=== PATIENT | male | born 1985 | race Caucasian/White ===

== ENCOUNTER 2018-09-05 00:18 | Emergency (ER) | payer OTHER ==
[~2018-09-05] VITALS: Ht 200.7 cm; Wt 209.1 kg
[~2018-09-05 00:18] MED LIST: MELA3TAB2 PO
[2018-09-05 00:33] VITALS: BP 142/89
--- NOTE | 2018-09-05 00:40 | ED.ADGEN ---
Past History Past Medical History: Anxiety, Other Past Surgical History: No Surgical History Smoking: Quit Less Than 1 Year Alcohol Use: None Drug Use: Marijuana Adult General Chief Complaint Chief Complaint penis problem HPI HPI Patient is a [age] year old [sex] who presents with [] Review of Systems Review of Systems Allergies Allergies Allergies Coded Allergies Type Severity Reaction Last Updated Verified No Known Drug Allergies 09/05/18 No EKG EKG [] Radiology/Procedures Radiology/Procedures [] Course & Med Decision Making Course & Med Decision Making Patient refused to be seen and evaluated refused blood work perfused physical exam she was the x-rays stated I want to go to different hospital take care of the blood pressure cuff and pulse ox on left with his mom Final Impression Final Impression [] Problems: (1) Penis pain Dragon Disclaimer Dragon Disclaimer This electronic medical record was generated, in whole or in part, using a voice recognition dictation system. SEBASTIAN KIM MD Sep 05, 2018 00:40
== END 2018-09-05 00:38 | disposition left against medical advice (07) ==
LOC: ER 00:18
DX: N48.89 Other specified disorders of penis (principal); R06.02 Shortness of breath; F41.9 Anxiety disorder, unspecified; Z87.891 Personal history of nicotine dependence; Z53.21 Procedure and treatment not carried out due to patient leaving prior to being seen by health care provider

== ENCOUNTER 2021-02-15 13:18 | Emergency (ER) | payer OTHER ==
[~2021-02-15] VITALS: Ht 198.1 cm; Wt 157.8 kg
[~2021-02-15 13:18] MED LIST changes: -MELA3TAB2 PO; +MELA3TAB4 PO
--- NOTE | 2021-02-15 13:49 | PHYS DOC ---
Past History Past Medical History: Anxiety, Bipolar, Schizophrenia, Other Past Surgical History: No Surgical History Smoking: Quit Less Than 1 Year Alcohol Use: Rarely Drug Use: Marijuana General Adult EDM: Chief Complaint: PSYCH EVALUATION HPI: HPI: 35-year-old male presents with his mother for psychiatric evaluation. The patient is deaf. He communicates through sign language and he can speak. Most of this history comes from the patient's mother. She reports that he has been acting erratic lately. He has been knocking on neighbors doors and talking to people that are not there. He is also been wandering around outside. Patient has a history of schizophrenia, but has not been on medications in several years. Mom was concerned someone will call the police on the patient and he will not be able to communicate with the officers. The patient tells me through the shield installer that he feels fine. He denies hallucinations. He denies s uicidal or homicidal ideation but then states "do not ask me questions like that". Review of Systems: Review of Systems: Constitutional: Denies fever or chills Eyes: Denies change in visual acuity HENT: Deaf. Denies nasal congestion or sore throat Respiratory: Denies cough or shortness of breath Cardiovascular: Denies chest pain or edema GI: Denies abdominal pain, nausea, vomiting, bloody stools or diarrhea : Denies dysuria Musculoskeletal: Denies back pain or joint pain Integument: Denies rash Neurologic: Denies headache, focal weakness or sensory changes Endocrine: Denies polyuria or polydipsia Lymphatic: Denies swollen glands Psychiatric: Hallucinations Allergies: Allergies: Allergies Coded Allergies Type Severity Reaction Last Updated Verified No Known Drug Allergies 09/05/18 No Physical Exam: PE: Constitutional: Well developed, well nourished, obese, no acute distress, non- toxic appearance. [] HENT: Normocephalic, atraumatic, bilateral external ears normal, deaf, oropharynx moist, no oral exudates, nose normal. [] Eyes: PERRLA, EOMI, conjunctiva normal, no discharge. [] Neck: Normal range of motion, no tenderness, supple, no stridor. [] Cardiovascular: Heart rate regular rhythm, no murmur [] Lungs & Thorax: Bilateral breath sounds clear to auscultation [] Abdomen: Bowel sounds normal, soft, no tenderness, no masses, no pulsatile masses. [] Skin: Warm, dry, no erythema, no rash. [] Back: No tenderness, no CVA tenderness. [] Extremities: No tenderness, no cyanosis, no clubbing, ROM intact, no edema. [] Neurologic: Alert and oriented X 3, normal motor function, normal sensory function, no focal deficits noted. [] Psychologic: Affect normal, judgement normal, mood frustrated. It appears to be signing occasionally to someone in the room who was not there. [] EKG: EKG: [] Radiology/Procedures: Radiology/Procedures: [] Heart Score: C/O Chest Pain: N/A Risk Factors: Risk Factors: DM, Current or recent (<one month) smoker, HTN, HLP, family history of CAD, obesity. Risk Scores: Score 0 - 3: 2.5% MACE over next 6 weeks - Discharge Home Score 4 - 6: 20.3% MACE over next 6 weeks - Admit for Clinical Observation Score 7 - 10: 72.7% MACE over next 6 weeks - Early Invasive Strategies Course & Med Decision Making: Course & Med Decision Making Pertinent Labs and Imaging studies reviewed. (See chart for details) The patient's labs are unremarkable. The patient is medically stable for behavioral health evaluation. The behavioral health team has determined that the patient does not meet involuntary admission criteria. He will need to go home and follow-up outpatient. If further events concerning the patient's family, they will need to contact the police to facilitate the involuntary process. I do not see behavior that would allow me to start the involuntary process. The patient is stable for discharge at this time. [] Gideon Disclaimer: Gideon Disclaimer: This electronic medical record was generated, in whole or in part, using a voice recognition dictation system. Departure Departure: Impression: Primary Impression: Change in behavior Disposition: 01 HOME / SELF CARE / HOMELESS Condition: STABLE Referrals: PCP,NO (PCP) Patient Instructions: Hallucinations and Delusions HARSHAL JAMES DO Feb 15, 2021 13:49
[2021-02-15 13:51] VITALS: BP 114/70
[2021-02-15 14:07] LABS: CALCIUM 9.1 mg/dL (8.5-10.1); CREATININE 1.3 mg/dL (0.7-1.3); GFR 63.2; POTASSIUM 3.3 mmol/L (3.5-5.1)
[2021-02-15 14:13] LABS: ALBUMIN 3.7 g/dL (3.4-5.0); ALBUMIN/GLOBULIN RATIO 0.9 (1.0-1.7); TOTAL BILIRUBIN 0.5 mg/dL (0.2-1.0); TOTAL PROTEIN 7.7 g/dL (6.4-8.2)
[2021-02-15 14:15] LABS: BASO % 0 % (0-3); EOS # 0.1 x10^3/uL (0.0-0.7); EOS % 1 % (0-3); HEMATOCRIT 42.9 % (39.0-53.0); HEMOGLOBIN 14.9 g/dL (13.0-17.5); LYMPH # 2.2 x10^3/uL (1.0-4.8); LYMPH % 24 % (24-48); MEAN CORPUSCULAR HEMOGLOBIN 32 pg (25-35); MEAN CORPUSCULAR HGB CONC 35 g/dL (31-37); MEAN CORPUSCULAR VOLUME 91 fL (79-100); MONO # 0.6 x10^3/uL (0.0-1.1); MONO % 6 % (0-9); NEUT # 6.5 x10^3uL (1.8-7.7); NEUT % 69 % (31-73); PLATELET COUNT 272 x10^3/uL (140-400); RED CELL DISTRIBUTION WIDTH 13.1 % (11.5-14.5); WHITE BLOOD COUNT 9.4 x10^3/uL (4.0-11.0)
== END 2021-02-15 17:00 | disposition home or self-care (01) ==
LOC: ER 13:18
DX: R46.89 Other symptoms and signs involving appearance and behavior (principal); R44.3 Hallucinations, unspecified; F41.9 Anxiety disorder, unspecified; F31.9 Bipolar disorder, unspecified; F20.9 Schizophrenia, unspecified; Z87.891 Personal history of nicotine dependence
CPT/HCPCS: 36415; 80053; 85025; 99283